=== PATIENT | female | born 2000 ===

== ENCOUNTER → 2024-06-23 | Outpatient (CLI) | payer SELFPAY ==
[2024-06-23 15:21] LABS: Candida Group, PCR NOT DETECTED (NOT DETECT); Candida glabrata-krusei, PCR NOT DETECTED (NOT DETECT)
[2024-06-23 15:22] LABS: Bacterial Vaginosis PCR Positive (NEGATIVE)
== END ==
LOC: LAB 10:54 → LAB SHORT 10:54
PROVIDERS: Advanced Practice Midwife
DX: N76.0 Acute vaginitis (principal); Z01.419 Encounter for gynecological examination (general) (routine) without abnormal findings
CPT/HCPCS: 87481; 87661; 87801